=== PATIENT | female | born 1985 | race Caucasian/White ===

== ENCOUNTER 2017-05-31 23:54 | Emergency (ER) | payer OTHER ==
[~2017-05-31] VITALS: Ht 167.6 cm; Wt 56.7 kg
[2017-06-01 00:10] VITALS: BP 123/86
[2017-06-01] MEDS ORDERED: LIDOCAINE 0.5%-EPI 1:200,000 50 ML VIAL ONE (00:19)
[2017-06-01] MEDS ORDERED: LIDOCAINE 1%-EPI 1:100,000 50 ML VIAL IJ ONE (00:30)
[2017-06-01] MEDS ORDERED: ACETAMINOPHEN ES 500 MG TABLET ONE (00:42)
[2017-06-01] MEDS ORDERED: ACETAMINOPHEN ES 500 MG TABLET PO ONE (01:00)
== END 2017-06-01 00:50 | disposition home or self-care (01) ==
LOC: ER 23:59
DX: S01.81XA Laceration without foreign body of other part of head, initial encounter (principal); E03.9 Hypothyroidism, unspecified; F17.200 Nicotine dependence, unspecified, uncomplicated; W01.198A Fall on same level from slipping, tripping and stumbling with subsequent striking against other object, initial encounter; Y93.89 Activity, other specified; Y92.89 Other specified places as the place of occurrence of the external cause; Y99.9 Unspecified external cause status
CPT/HCPCS: 12011; 99283; A4606; A6402; J3490; Z7610

== ENCOUNTER 2017-09-07 13:35 | Emergency (ER) | payer OTHER ==
[~2017-09-07] VITALS: Ht 167.6 cm; Wt 58.1 kg
[2017-09-07 13:48] VITALS: BP 129/76
== END 2017-09-07 14:11 | disposition home or self-care (01) ==
LOC: ER 13:38
DX: J11.1 Influenza due to unidentified influenza virus with other respiratory manifestations (principal); E03.9 Hypothyroidism, unspecified
CPT/HCPCS: 99281; A4606; Z7610; Z7502